=== PATIENT | female | born 1955 | race Asian ===

== ENCOUNTER 2020-11-11 05:16 | Observation (INO) | payer BC, OTHER ==
[~2020-11-11] VITALS: Ht 149.9 cm; Wt 47.7 kg
--- NOTE | 2020-11-11 05:26 | NUR ---
bib ems from home. pt making breakfast and had syncopal episode. pt did lose consiousness, and per pt was on te floor for a "couple min". pt denies hitting head, no s/s of trauma. pt found to have bp in 80's over 40's. pt recived 500 ml bolus enroute and blood pressure has stabilized at this tme. pt stes feeling better, no dizziness or lightheadned ness at this time.
[2020-11-11 06:00] LABS: BASOPHILS % (AUTO) 0 % (0-1); EOSINOPHILS % (AUTO) 1 % (1-7); LYMPHOCYTES % (AUTO) 20 % (22-44); MEAN CORPUSCULAR HEMOGLOBIN 29.5 pg (27.0-34.8); MEAN CORPUSCULAR HGB CONC 34.2 g/dL (32.4-35.8); MEAN PLATELET VOLUME 8.4 fL (7.4-10.4); MONOCYTES % (AUTO) 7 % (2-9); NEUTROPHILS % (AUTO) 72 % (42-75); PLATELET COUNT 100 x10^3/uL (130-400); RED BLOOD COUNT 4.38 x10^6/uL (3.82-5.3); RED CELL DISTRIBUTION WIDTH 12.9 % (9.6-15.2)
[2020-11-11] MEDS ORDERED: SODIUM CHLORIDE 0.9% 1,000ML IVBOLUS ONE (06:00)
[2020-11-11] MEDS ORDERED: SODIUM CHLORIDE FLUSH 10ML SYR IVF ONE (06:00)
[2020-11-11 06:11] LABS: ALBUMIN 2.9 g/dL (3.4-5.0); ANION GAP 5 mmol/L (5-15); CHLORIDE 111 mmol/L (98-107); CREATININE 0.81 mg/dL (0.55-1.02)
[2020-11-11 06:15] LABS: TROPONIN I < 0.015 ng/mL (0.000-0.045)
[2020-11-11] MEDS ORDERED: POTASSIUM CHLORIDE 20 MEQ PACKET ONE (06:28)
[2020-11-11] MEDS ORDERED: POTASSIUM CHLORIDE 20 MEQ PACKET PO ONE (06:30)
--- NOTE | 2020-11-11 07:08 | NUR ---
Report from IBIS Jamison. Pt back from bathroom. sample collected. Hospital bed ordered.
[2020-11-11 07:29] LABS: MICROSCOPIC AUTO
[2020-11-11] MEDS ORDERED: CEFTRIAXONE 1,000 MG IM SCH (08:30)
[2020-11-11] MEDS ORDERED: ACETAMINOPHEN 325 MG TABLET PO PRN (08:30)
[2020-11-11] MEDS: HEPARIN 5,000 UNITS/ML, 1ML SQ SCH ×2 (08:30→21:22)
[2020-11-11] MEDS ORDERED: ONDANSETRON 2MG/ML, 2ML IVPush PRN (08:30)
[2020-11-11] MEDS ORDERED: ONDANSETRON ODT 4 MG PO PRN (08:30)
[2020-11-11 08:49] LABS: ALBUMIN 2.9 g/dL (3.4-5.0); BILIRUBIN, DIRECT 0.2 mg/dL (0.1-0.2)
[2020-11-11 08:51] LABS: BILIRUBIN,INDIRECT 0.5 mg/dL (0.0-2.0); BILIRUBIN,TOTAL 0.7 mg/dL (0.2-1.0); TOTAL PROTEIN 6.5 g/dL (6.4-8.2)
[2020-11-11] MEDS ORDERED: HEPARIN 5,000 UNITS/ML, 1ML ONE (09:54)
--- NOTE | 2020-11-11 10:01 | NUR ---
MD Magallon called to clarify abx order. IV bolus finishing infusing, when finished will hang maintence fluids at ordered 50ml/hr.
--- NOTE | 2020-11-11 10:44 | NUR ---
MD Magallon called again. Verbal order with read back for Rocephin to be changed to IV route.
[2020-11-11] MEDS: SODIUM CHLORIDE 0.9% 1,000 ML IV SCH (10:49)
--- NOTE | 2020-11-11 10:56 | NUR ---
Pt to imaging via WC.
--- NOTE | 2020-11-11 12:09 | NUR ---
TASK RN: PT RESTING IN NAD, ALL NEEDS MET AT THIS TIME.
[2020-11-11 16:02] VITALS: BP 136/77
[2020-11-11 19:45] VITALS: BP 132/83
[2020-11-12 00:39] VITALS: BP 124/85
[2020-11-12 05:06] LABS: BASOPHILS % (AUTO) 0 % (0-1); EOSINOPHILS % (AUTO) 1 % (1-7); LYMPHOCYTES % (AUTO) 30 % (22-44); MEAN CORPUSCULAR HEMOGLOBIN 29.5 pg (27.0-34.8); MEAN CORPUSCULAR HGB CONC 33.8 g/dL (32.4-35.8); MEAN PLATELET VOLUME 8.7 fL (7.4-10.4); MONOCYTES % (AUTO) 6 % (2-9); NEUTROPHILS % (AUTO) 62 % (42-75); PLATELET COUNT 104 x10^3/uL (130-400); RED BLOOD COUNT 4.71 x10^6/uL (3.82-5.3)
[2020-11-12 05:19] LABS: CHLORIDE 112 mmol/L (98-107)
[2020-11-12 05:26] LABS: % IRON SATURATION 9 % (20-55); ANION GAP 6 mmol/L (5-15); CALCIUM 8.2 mg/dL (8.5-10.1); CREATININE 0.61 mg/dL (0.55-1.02); IRON LEVEL 30 mcg/dL (50-170); TOTAL IRON BINDING CAPACITY 347 mcg/dL (250-450)
[2020-11-12] MEDS ORDERED: POTASSIUM CHLORIDE 20 MEQ TAB.ER.PRT PO ONE (07:00)
[2020-11-12] MEDS: HEPARIN 5,000 UNITS/ML, 1ML SQ SCH (08:22)
[2020-11-12] MEDS ORDERED: CEFTRIAXONE 1,000 MG IV SCH (08:30)
[2020-11-12] MEDS ORDERED: CEFTRIAXONE 1,000 MG in DEXTROSE 5% 50 ML IVPB SCH (08:30)
[2020-11-12 09:07] VITALS: BP 124/75
[2020-11-12 14:21] VITALS: BP 130/77
[2020-11-12] MEDS ORDERED: CEFD300C37 PO (16:49)
[2020-11-12] MEDS ORDERED: AZIT250T PO (16:50)
[2020-11-12] MEDS: SODIUM CHLORIDE 0.9% 1,000 ML IV SCH (17:41)
== END 2020-11-12 18:17 | disposition home or self-care (01) ==
LOC: ED 06:00 → INTOOBSV 06:33 → EDIP 06:33 → 4WST 15:55
PROVIDERS: ADMIT Hospitalist; ATTEND Family Medicine
DX: U07.1 COVID-19 (principal); J12.82 Pneumonia due to coronavirus disease 2019; I95.1 Orthostatic hypotension; N39.0 Urinary tract infection, site not specified; E87.6 Hypokalemia; D69.6 Thrombocytopenia, unspecified; R09.89 Other specified symptoms and signs involving the circulatory and respiratory systems; J18.9 Pneumonia, unspecified organism; E86.0 Dehydration; I34.0 Nonrheumatic mitral (valve) insufficiency; J93.9 Pneumothorax, unspecified; Z79.899 Other long term (current) drug therapy
CPT/HCPCS: 36415; 71045; 71250; 80048; 80076; 81001; 82040; 83540; 83550; 83735; 84484; 85025; 87086; 93005; 93306; 93880; 96361; 96365; 96372; 96376; 99285; G0378; J0696; J1644; J7030; U0003; U0005